=== PATIENT | male | born 1990 | race Caucasian/White ===

== ENCOUNTER 2021-11-30 15:23 | Emergency (ER) | payer BC ==
[~2021-11-30] VITALS: Ht 175.3 cm; Wt 88.5 kg
[2021-11-30 15:24] VITALS: BP 143/76
[2021-11-30] MEDS ORDERED: FAMOTIDINE 20 MG TAB PO ONE (15:35)
[2021-11-30] MEDS ORDERED: diphenhydrAMINE 50 MG CAP PO ONE (15:35)
[2021-11-30] MEDS ORDERED: predniSONE 20 MG TAB PO ONE (15:35)
--- NOTE | 2021-11-30 17:07 | NUR ---
30/M BIB SELF FOR ALLERGIC REACTION. STATES HE WAS EATING DAVID LOCO AND FELT LIKE HIS THROAT WAS CLOSING. NO SIGNS OF RESPIRATORY DISTRESS OR DROOLING, PATIENT SPEAKING IN FULL CLEAR SENTENCES. DENIES CP OR SOB.
[2021-11-30] MEDS ORDERED: PRED20TA5 PO (17:26)
[2021-11-30 17:34] VITALS: BP 152/87
--- NOTE | 2021-11-30 17:35 | NUR ---
Patient discharged with v/s stable. Written and verbal after care instructions ABOUT PANIC ATTACK AND ANAPHYLACTIC REACTION given and explained. Patient alert, oriented and verbalized understanding of instructions. Ambulatory with steady gait. All questions addressed prior to discharge. ID band removed. Patient advised to follow up with PMD. Rx of PREDNISONE given. Patient educated on indication of medication including possible reaction and side effects. Opportunity to ask questions provided and answered.
== END 2021-11-30 17:35 | disposition home or self-care (01) ==
LOC: MED 15:23
DX: T78.40XA Allergy, unspecified, initial encounter (principal); F41.1 Generalized anxiety disorder; J45.909 Unspecified asthma, uncomplicated; Z79.899 Other long term (current) drug therapy; X58.XXXA Exposure to other specified factors, initial encounter; Y93.89 Activity, other specified; Y92.89 Other specified places as the place of occurrence of the external cause; Y99.8 Other external cause status
CPT/HCPCS: 93005; 99284; J7512; Q0163